=== PATIENT | male | born 1985 | race African-American/Black ===

== ENCOUNTER 2019-11-29 20:26 | Emergency (ER) | payer SELFPAY, OTHER ==
[~2019-11-29] VITALS: Ht 175.3 cm; Wt 74.8 kg
[2019-11-29] MEDS ORDERED: DiphenhydrAMINE 50mg/ml Inj ONE (20:37)
[2019-11-29] MEDS ORDERED: Haloperidol 5mg/ml Inj ONE (20:37)
[2019-11-29] MEDS ORDERED: LORazepam Inj 2mg/ml 1ml ONE (20:37)
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
[2019-11-29 20:45] VITALS: BP 136/89
[2019-11-29] MEDS ORDERED: LORazepam Inj 2mg/ml 1ml IV ONE (20:45)
[2019-11-29] MEDS ORDERED: Haloperidol 5mg/ml Inj IM ONE ×3 (20:45→21:00)
[2019-11-29] MEDS ORDERED: DiphenhydrAMINE 50mg/ml Inj IVP ONE (20:45)
[2019-11-29 21:00] VITALS: BP 136/89
[2019-11-29 21:15] VITALS: BP_SYST 118; BP_SYST 136; BP_DIAS 77; BP_DIAS 89
[2019-11-29 21:30] VITALS: BP 133/27
[2019-11-29 21:52] VITALS: BP 122/72
[2019-11-29 22:07] LABS: APPEARANCE,URINE CLEAR; BILIRUBIN, URINE NEGATIVE (NEGATIVE); COLOR,URINE PALE YELLOW; GLUCOSE, URINE (UA) NEGATIVE (NEGATIVE); KETONES,URINE 2+ (NEGATIVE); LEUKOCYTE ESTERASE ,URINE NEGATIVE (NEGATIVE); NITRITE,URINE NEGATIVE (NEGATIVE); PH,URINE 7 (4.5-8.0); PROTEIN,URINE 1+ (NEGATIVE); UROBILINOGEN,URINE NORMAL MG/DL (0.0-1.0)
[2019-11-29 22:12] LABS: ANION GAP 13 mmol/L (5-15); BLOOD UREA NITROGEN 8 mg/dL (7-18); CALCIUM 8.8 MG/DL (8.5-10.1); CARBON DIOXIDE 23 MMOL/L (21-32); CHLORIDE 104 MMOL/L (98-107); CREATININE 1.5 MG/DL (0.55-1.30); POTASSIUM 3.5 MMOL/L (3.5-5.1); SODIUM 140 MMOL/L (136-145)
[2019-11-29 22:15] LABS: BASOPHILS % (AUTO) 1.5 % (0.0-2.0); EOSINOPHILS % (AUTO) 0.1 % (0.0-3.0); HEMATOCRIT 37.6 % (42.0-52.0); HEMOGLOBIN 12.4 G/DL (14.2-18.0); LYMPHOCYTES % (AUTO) 6.4 % (20.0-45.0); MEAN CORPUSCULAR VOLUME 93 FL (80-99); MONOCYTES % (AUTO) 7.9 % (1.0-10.0); NEUTROPHILS % (AUTO) 84.2 % (45.0-75.0); PLATELET COUNT 173 K/UL (150-450); RED BLOOD COUNT 4.07 M/UL (4.70-6.10); RED CELL DISTRIBUTION WIDTH 13.4 % (11.6-14.8); WHITE BLOOD COUNT 9.6 K/UL (4.8-10.8)
[2019-11-29] MEDS ORDERED: Bacitracin Oint UD TOPIC ONE (22:15)
[2019-11-29 22:17] LABS: ALANINE AMINOTRANSFERASE 34 U/L (12-78); ALBUMIN 3.8 G/DL (3.4-5.0); ALBUMIN/GLOBULIN RATIO 1.1 (1.0-2.7); ALKALINE PHOSPHATASE 59 U/L (46-116); ASPARTATE AMINO TRANSFERASE 53 U/L (15-37); BILIRUBIN,TOTAL 0.5 MG/DL (0.2-1.0)
--- NOTE | 2019-11-29 23:25 | Diagnostic Imaging Report ---
EXAM: CT Head Without Intravenous Contrast CLINICAL HISTORY: AMS. Increased agitation. TECHNIQUE: Axial computed tomography images of the head/brain without intravenous contrast. CTDI is 53.4 mGy and DLP is 1042 mGy-cm. One or more of the following dose reduction techniques were used: automated exposure control, adjustment of the mA and/or kV according to patient size, use of iterative reconstruction technique. COMPARISON: No relevant prior studies available. FINDINGS: Brain: Unremarkable. No hemorrhage. No significant white matter disease. No edema. Ventricles: Unremarkable. Bones/joints: Unremarkable. No acute fracture. Soft tissues: Unremarkable. Sinuses: Focal areas of very mild mucosal thickening in the paranasal sinuses. Mastoid air cells: Unremarkable as visualized. No mastoid effusion. IMPRESSION: No CT evidence for acute intracranial abnormality.
[2019-11-30 00:45] VITALS: BP 122/72
== END 2019-11-30 00:45 ==
LOC: EDBD 20:26 → EMR 21:30
DX: F15.10 Other stimulant abuse, uncomplicated (principal); F13.10 Sedative, hypnotic or anxiolytic abuse, uncomplicated; F23 Brief psychotic disorder; E86.0 Dehydration; Z88.8 Allergy status to other drugs, medicaments and biological substances
CPT/HCPCS: 36415; 70450; 80053; 80307; 81003; 85025; 86850; 86900; 86901; 96361; 96372; 96374; 96375; 99284; G0480; J1200; J1630; J7030